=== PATIENT | female | born 1960 | race Asian ===

== ENCOUNTER 2018-01-25 06:07 | Day surgery (SDC) | payer OTHER ==
[2018-01-18 10:57] LABS: Absolute Lymphocytes (CBC) 1.9 K/uL (0.7-4.9); Absolute Monocytes 0.5 K/uL (0.1-1.3); Eosinophils % 2.2 % (0-4.4); Hematocrit 45.3 % (36.0-45.0); Lymphocytes % 41.7 % (15.3-44.8); MCH 29.2 pg (27.0-35.0); MCV 86.7 fL (80-100); MPV 9.3 fL (7.6-11.3); Monocytes % 11.3 % (3.3-12.3); RBC Red Blood Cell Count 5.22 M/uL (3.86-4.86)
[2018-01-18 11:18] LABS: BUN Blood Urea Nitrogen 13 mg/dL (7-18); Bicarbonate 26 mmol/L (21-32); Glucose Level 108 mg/dL (74-106); Sodium Level 140 mmol/L (136-145)
--- NOTE | 2018-01-19 04:20 | EKG ---
Test Date: 2018-01-18 Test Time: 10:11:22 Machine Loader: ZAKIA MEASUREMENT RESULTS: Intervals: Rate: 53 FL: 162 QRSD: 80 QT: 440 QTc: 412 [place]: P: 29 FL: 162 QRS: 27 T: 41 INTERPRETIVE STATEMENTS: Sinus bradycardia Otherwise normal ECG Compared to ECG 03/07/2017 08:31:16 No significant changes Electronically Signed On 01-19-18 04:17:27 CDT by Edwin Segundo
[2018-01-22 10:44] LABS: Protime INR 0.92
[2018-01-25] MEDS ORDERED: Ringers Lactate 1,000 ML IV ONE ×3 (06:34→10:33)
[2018-01-25] MEDS ORDERED: CEFAZOLIN/SWI 1gm 1 GM/10 ML SYR ONE (06:34)
[2018-01-25] MEDS ORDERED: DEXAMETHASONE 4 MG/ML VIAL ONE ×2 (06:52→07:27)
[2018-01-25] MEDS ORDERED: MIDAZOLAM HCL 2 MG/2 ML INJ ONE ×2 (06:52→06:53)
[2018-01-25] MEDS ORDERED: FENTANYL CITR 250 MCG/5 ML ONE (06:53)
[2018-01-25] MEDS ORDERED: ROPLVACAINE HCL 20 ML ONE ×2 (06:53→07:26)
[2018-01-25] MEDS ORDERED: LIDOCAINE 2% MPF 5 ML VIAL ONE ×2 (07:05→07:40)
[2018-01-25] MEDS ORDERED: EPINEPHRINE/PF 1 MG/ML AMP ONE (07:14)
[2018-01-25] MEDS ORDERED: PROPOFOL 200 MG/20 ML VIAL IV ONE (07:39)
[2018-01-25] MEDS ORDERED: ROCURONIUM 50 MG/5 ML VIAL IV ONE (07:40)
[2018-01-25] MEDS ORDERED: ONDANSETRON HCL 40 MG/20 ML VIAL ONE (07:40)
[2018-01-25] MEDS ORDERED: EPHEDRINE SULF 50 MG/10 ML SYR ONE (08:05)
[2018-01-25] MEDS ORDERED: DEXAMETHASONE 10 MG/ML VIAL ONE (08:25)
[2018-01-25] MEDS ORDERED: GLYCOPYRROLATE 0.2 MG/ML SYR ONE ×2 (09:48)
[2018-01-25] MEDS ORDERED: NEOSTIGMINE 1 MG/ML -5 ML SYRINGE ONE (09:49)
--- NOTE | 2018-01-25 09:54 | P.BOP ---
Preoperative diagnosis: left shoulder rotator cuff tear Postoperative diagnosis: same, left shoulder impingement syndrome Primary procedure: left shoulder arthroscopic rotator cuff repair Secondary procedure: left shoulder arthroscopic subscapularis debridement Other procedure(s): left shoulder arthroscopic subacromial decompression Merchandising Coordinator: NONE,NONE Estimated blood loss: <10 cc Specimen: none Findings: see dictation Anesthesia: General Complications: None Implants: 1- 5.5 mm corkscrew, 1- 4.75 mm swivelock Fluids & blood products: per anesthesia record Transferred to: Recovery Room Condition: Good
--- NOTE | 2018-01-25 10:34 | RAD REPORT ---
EXAM DESCRIPTION: RAD - Shoulder 1 View - 01/25/2018 10:25 am CLINICAL HISTORY: Right shoulder surgery FINDINGS: Frontal view of the right shoulder was obtained. No fracture or dislocation is seen. Spur extends off of the inferior aspect of the acromion
[2018-01-25] MEDS ORDERED: ONDANSETRON 4 MG/2 ML VIAL ONE (12:19)
[2018-01-25] MEDS ORDERED: HYDROCODONE/APAP 7.5/325 MG TAB ONE (12:55)
--- NOTE | 2018-01-26 00:43 | OP ---
Date of Procedure: 01/25/2018 Surgeon: Arturo Ty MD Preoperative Diagnoses: 1. Left shoulder rotator cuff tear. 2. Left shoulder impingement syndrome. 3. Left shoulder bicipital tenosynovitis. Postoperative Diagnoses: 1. Left shoulder rotator cuff tear. 2. Left shoulder impingement syndrome. Procedure Performed: 1. Left shoulder arthroscopic rotator cuff repair. 2. Left shoulder arthroscopic subscapularis debridement. 3. Left shoulder arthroscopic subacromial decompression. Anesthesia: General endotracheal. Fluids: Per Anesthesia record. Ebl: Less than 10 cc. Complications: None. Implants: 1. One 5.5 mm Arthrex corkscrew. 2. One 0.75 mm SwiveLock. Indication For Procedure: Janae is a 57-year-old female, who presented to my clinic with signs and symptoms with MRI findings consistent with left shoulder rotator cuff tear. I discussed with the patient at length risks and benefits associated with operative and nonoperative treatment. She expressed understanding and elected to proceed with operative treatment. Description Of Procedure: After informed consent was obtained, the patient was identified in the preoperative holding area. The patient was taken back to the PACU and underwent an interscalene block to her left upper extremity performed by Anesthesia. The left upper extremity was marked. The patient was then taken back to the operating room, transferred to the operating table in supine fashion, and placed under general endotracheal anesthesia. She was then placed in the beach chair position with her extremities well padded. The left upper extremity was then examined. The patient had full range of motion of her left shoulder with no instability noted of her glenohumeral joint. The left upper extremity was then prepped and draped in usual sterile fashion. A time-out was initiated. The correct patient and procedure were confirmed and identified. The patient did receive her preoperative prophylactic antibiotics. In posterior portal position, a spinal needle was introduced into the glenohumeral joint and the shoulder was injected with 30 cc of normal saline to distend the capsule. A posterior portal was created and the arthroscope was brought into the posterior portal position. Standard anterior portal was also created and a diagnostic arthroscopy was performed. The patient was noted to have no significant chondromalacia noted over the humeral head or glenoid surface. The anterior and posterior labrum were found to be intact as well as the superior labrum with no evidence of SLAP tear. The biceps tendon and anchor were found to be without tearing or fraying. The patient was noted to have a small subscapular tear over the superior border of the subscapularis. It was treated with debridement of the small tear. Subscapularis was found to be stable to probe along the lesser tuberosity. Just posterior to the biceps tendon as it exited the shoulder joint, there was noted to be an anterior tear of the supraspinatus, which was full thickness in nature. Standard lateral portals were created and the supraspinatus was debrided using an arthroscopic shaver as well as the greater tuberosity debrided of any soft tissue off the footprint on the greater tuberosity. The arthroscope was then brought into the subacromial space. The subacromial bursectomy was performed. The patient was noted to have some spurring over the anterior lateral undersurface of the acromion. Lateral cannula was then placed and the tear appeared to be amenable to repair with medial and lateral row fixation. A 5.5 mm Arthrex corkscrew was placed for medial row fixation, placed it lateral to the articular surface and was double loaded. Sutures were then passed through the anterior supraspinatus from an [id number] fashion in horizontal mattress fashion. The sutures were then tied for medial row fixation. They were all then brought laterally through a 0.75 mm SwiveLock for a lateral row fixation of the lateral aspect of the greater tuberosity. There was good overall reduction of the supraspinatus tear onto its footprint. The remaining tissues were then cut. Using a radiofrequency ablator as well as an arthroscopic bur, a subacromial decompression was performed. The bur was then used to perform an acromioplasty. The spurring of the undersurface of the acromion was cleared. There was good subacromial space noted after completion of the acromioplasty, no impingement of the rotator cuff. The arthroscopic instruments were then removed without complication. Portal incisions were approximated using a 2-0 Vicryl subcutaneously and the skin was approximated using 3-0 Monocryl. Sterile dressings were applied. The patient was placed in a shoulder immobilizer, awakened, and transferred to PACU in stable condition. Postoperative Plan: Ms. Flaherty will follow up in my clinic in next week for wound check. We will follow the medium rotator cuff repair protocol beginning at 2 weeks postoperatively. LALA/ASHLEY Voice ID: [id number] Report ID: [id number] MTDD
== END 2018-01-25 13:10 | disposition home or self-care (01) ==
LOC: OR 06:07
PROVIDERS: ATTEND Orthopaedic Surgery Sports Medicine
PROC: 0RNK4ZZ Release Left Shoulder Joint, Percutaneous Endoscopic Approach (ICD-10-PCS; 2018-01-25)
PROC: 0RBK4ZZ Excision of Left Shoulder Joint, Percutaneous Endoscopic Approach (ICD-10-PCS; 2018-01-25)
PROC: 0LQ24ZZ Repair Left Shoulder Tendon, Percutaneous Endoscopic Approach (ICD-10-PCS; principal; 2018-01-25 07:30)
DX: M75.122 Complete rotator cuff tear or rupture of left shoulder, not specified as traumatic (principal); M75.42 Impingement syndrome of left shoulder; I10 Essential (primary) hypertension; Z79.82 Long term (current) use of aspirin; Z82.49 Family history of ischemic heart disease and other diseases of the circulatory system; Z83.3 Family history of diabetes mellitus; Z82.3 Family history of stroke
CPT/HCPCS: 36415; 73020; 80048; 85025; 85610; 85730; 93005; J0171; J0690; J1100; J2250; J2405; J2704; J2710; J2795

== ENCOUNTER 2019-04-16 06:41 | Emergency (ER) | payer OTHER ==
--- NOTE | 2019-04-16 07:20 | ER ---
Nurse's Notes [facility] Name: Janae Flaherty Age: 59 yrs Sex: Female : 1960 Arrival Date: 04/16/2019 Time: 06:43 Bed 6 Private MD: Diagnosis: Contusion of little finger without damage to nail;Osteoarthritis, unspecified site-hand Presentation: 04/16 06:53 Presenting complaint: Patient states: she smashed her R pinky finger between a piece of aa1 rolling equipment and a door and is having a lot of pain from it. Bruising and swelling noted. Transition of care: patient was not received from another setting of care. Onset of symptoms was April 16, 2019. Risk Assessment: Do you want to hurt yourself or someone else? Patient reports no desire to harm self or others. Initial Sepsis Screen: Does the patient meet any 2 criteria? No. Patient's initial sepsis screen is negative. Does the patient have a suspected source of infection? No. Patient's initial sepsis screen is negative. Care prior to arrival: None. 06:53 Method Of Arrival: Ambulatory aa1 06:53 Acuity: LUCAS 4 aa1 Triage Assessment: 06:58 General: Appears in no apparent distress. comfortable, Behavior is calm, cooperative, aa1 appropriate for age. Historical: - Allergies: 06:58 No Known Allergies; aa1 - Home Meds: 06:58 Fosamax 70 mg Oral tab 1 tab once wkly [Active]; Lipitor 20 mg Oral tab 1 tab once aa1 daily [Active]; Norvasc 10 mg Oral tab 1 tab once daily [Active]; - PMHx: 06:58 Osteoporosis; Hypertension; aa1 - PSHx: 06:58 None; aa1 - Immunization history:: Flu vaccine is up to date. - Social history:: Smoking status: Patient/guardian denies using tobacco. - Ebola Screening: : No symptoms or risks identified at this time. Screenin:16 Abuse screen: Denies threats or abuse. Denies injuries from another. Nutritional ph screening: No deficits noted. Tuberculosis screening: No symptoms or risk factors identified. Fall Risk None identified. Assessment: 07:17 General: Appears in no apparent distress. Behavior is calm, cooperative, appropriate ph for age. Pain: Complains of pain in dorsal aspect of middle phalanx of right little finger and dorsal aspect of proximal phalanx of right little finger. Neuro: Level of Consciousness is awake, alert, obeys commands, Oriented to person, place, time, situation. Cardiovascular: Capillary refill < 3 seconds in bilateral fingers Patient's skin is warm and dry. Respiratory: Airway is patent Respiratory effort is even, unlabored. Derm: Skin is healthy with good turgor, Skin is pink, warm \T\ dry. Musculoskeletal: Circulation, motion, and sensation intact. Swelling present in dorsal aspect of middle phalanx of right little finger and dorsal aspect of proximal phalanx of right little finger. Vital Signs: 06:58 BP 144 / 75; Pulse 64; Resp 16; Temp 98.1; Pulse Ox 100% on R/A; Weight 52.16 kg; aa1 Height 5 ft. 1 in. (154.94 cm); Pain 5/10; 06:58 Body Mass Index 21.73 (52.16 kg, 154.94 cm) aa1 ED Course: 06:43 Patient arrived in ED. ds1 06:57 Triage completed. aa1 06:58 Arm band placed on left wrist. aa1 07:08 Cherelle Green FNP-C is PHCP. snw 07:08 Ruiz Carrera MD is Attending Physician. snw 07:11 Hand Right 3 View XRAY In Process Unspecified. EDMS 07:14 Dilcia Rodriguez, RN is Primary Nurse. ph 07:16 Patient has correct armband on for positive identification. Bed in low position. Call ph light in reach. Side rails up X 1. Pulse ox on. NIBP on. Door closed. Noise minimized. Administered Medications: 07:39 Drug: TORadol 30 mg Route: IM; Site: right gluteus; ss 07:45 Follow up: Response: No adverse reaction ph Outcome: 07:19 Discharge ordered by . snw 07:40 Patient left the ED. Signatures: Dispatcher [employer] EDMS Aracely Sarmiento, RN RN aa1 Cherelle Green FNP-C PROGRESS WORKER-CsnMeka Katz ds1 Minda Steinberg RN RN ss Dilcia Rodriguez RN RN ph
--- NOTE | 2019-04-16 07:20 | EDPHYS ---
Physician Documentation [facility] Name: Janae Flaherty Age: 59 yrs Sex: Female : 1960 Arrival Date: 04/16/2019 Time: 06:43 Bed 6 Private MD: ED Physician Ruiz Carrera HPI: 04/16 07:29 This 59 yrs old Female presents to ER via Ambulatory with complaints of Finger snw Injury. 07:29 The patient or guardian reports a contusion, pain, swelling. The complaints affect the snw dorsal aspect of middle phalanx of right little finger. Context: The problem was sustained at work, resulted from a crush injury, smashed between door and computer on wheels. Onset: The symptoms/episode began/occurred suddenly, yesterday, at 21:30. Associated signs and symptoms: Pertinent positives: edema. Severity of symptoms: At their worst the symptoms were moderate. The patient has not experienced similar symptoms in the past. It is unknown whether or not the patient has recently seen a physician. Historical: - Allergies: 06:58 No Known Allergies; aa1 - Home Meds: 06:58 Fosamax 70 mg Oral tab 1 tab once wkly [Active]; Lipitor 20 mg Oral tab 1 tab once aa1 daily [Active]; Norvasc 10 mg Oral tab 1 tab once daily [Active]; - PMHx: 06:58 Osteoporosis; Hypertension; aa1 - PSHx: 06:58 None; aa1 - Immunization history:: Flu vaccine is up to date. - Social history:: Smoking status: Patient/guardian denies using tobacco. - Ebola Screening: : No symptoms or risks identified at this time. ROS: 07:25 Constitutional: Negative for fever, chills, and weight loss, Eyes: Negative for injury, snw pain, redness, and discharge, ENT: Negative for injury, pain, and discharge, Neck: Negative for injury, pain, and swelling, Cardiovascular: Negative for chest pain, palpitations, and edema, Respiratory: Negative for shortness of breath, cough, wheezing, and pleuritic chest pain, Abdomen/GI: Negative for abdominal pain, nausea, vomiting, diarrhea, and constipation, Back: Negative for injury and pain, : Negative for injury, bleeding, discharge, and swelling, Neuro: Negative for headache, weakness, numbness, tingling, and seizure, Psych: Negative for depression, anxiety, suicide ideation, homicidal ideation, and hallucinations. 07:25 MS/extremity: Positive for injury or acute deformity, contusion, swelling, of the dorsal aspect of middle phalanx of right little finger. 07:25 Skin: Positive for ecchymosis, of the dorsal aspect of middle phalanx of right little finger. Exam: 07:25 Constitutional: This is a well developed, well nourished patient who is awake, alert, snw and in no acute distress. Head/Face: Normocephalic, atraumatic. Eyes: Pupils equal round and reactive to light, extra-ocular motions intact. Lids and lashes normal. Conjunctiva and sclera are non-icteric and not injected. Cornea within normal limits. Periorbital areas with no swelling, redness, or edema. ENT: Nares patent. No nasal discharge, no septal abnormalities noted. Tympanic membranes are normal and external auditory canals are clear. Oropharynx with no redness, swelling, or masses, exudates, or evidence of obstruction, uvula midline. Mucous membranes moist. Neck: Trachea midline, no thyromegaly or masses palpated, and no cervical lymphadenopathy. Supple, full range of motion without nuchal rigidity, or vertebral point tenderness. No Meningismus. Chest/axilla: Normal chest wall appearance and motion. Nontender with no deformity. No lesions are appreciated. Cardiovascular: Regular rate and rhythm with a normal S1 and S2. No gallops, murmurs, or rubs. Normal PMI, no JVD. No pulse deficits. Respiratory: Lungs have equal breath sounds bilaterally, clear to auscultation and percussion. No rales, rhonchi or wheezes noted. No increased work of breathing, no retractions or nasal flaring. Abdomen/GI: Soft, non-tender, with normal bowel sounds. No distension or tympany. No guarding or rebound. No evidence of tenderness throughout. Back: No spinal tenderness. No costovertebral tenderness. Full range of motion. Neuro: Awake and alert, GCS 15, oriented to person, place, time, and situation. Cranial nerves II-XII grossly intact. Motor strength 5/5 in all extremities. Sensory grossly intact. Cerebellar exam normal. Normal gait. Psych: Awake, alert, with orientation to person, place and time. Behavior, mood, and affect are within normal limits. 07:25 Skin: Appearance: normal except for affected area, Color: normal in color, injury, contusion(s), that are deep, of the dorsal aspect of middle phalanx of right little finger. Vital Signs: 06:58 BP 144 / 75; Pulse 64; Resp 16; Temp 98.1; Pulse Ox 100% on R/A; Weight 52.16 kg; aa1 Height 5 ft. 1 in. (154.94 cm); Pain 5/10; 06:58 Body Mass Index 21.73 (52.16 kg, 154.94 cm) aa1 MDM: 07:14 Patient medically screened. snw 07:27 Data reviewed: vital signs, nurses notes. Data interpreted: Pulse oximetry: on room air snw is 100 %. Interpretation: normal. Counseling: I had a detailed discussion with the patient and/or guardian regarding: the historical points, exam findings, and any diagnostic results supporting the discharge/admit diagnosis, the presence of at least one elevated blood pressure reading (>120/80) during this emergency department visit, radiology results, the need for outpatient follow up, for definitive care, to return to the emergency department if symptoms worsen or persist or if there are any questions or concerns that arise at home. 04/16 06:53 Order name: Hand Right 3 View XRAY aa1 Administered Medications: 07:39 Drug: TORadol 30 mg Route: IM; Site: right gluteus; ss 07:45 Follow up: Response: No adverse reaction ph Disposition: 09:37 Co-signature as Attending Physician, Ruiz Carrera MD I agree with the assessment and tw4 plan of care. Disposition: 04/16/19 07:19 Discharged to Home. Impression: Contusion of little finger without damage to nail, Osteoarthritis, unspecified site - hand. - Condition is Stable. - Discharge Instructions: Hand Contusion, Crush Injury of the Hand. - Prescriptions for Mobic 7.5 mg Oral Tablet - take 1 tablet by ORAL route once daily take with food; 20 tablet. - Medication Reconciliation Form, Thank You Letter, Antibiotic Education, Prescription Opioid Use form. - Follow up: Emergency Department; When: As needed; Reason: Worsening of condition. Follow up: Private Physician; When: 2 - 3 days; Reason: Recheck today's complaints, Continuance of care, Re-evaluation by your physician. Signatures: Dispatcher [employer] Aracely Byrnes RN RN aa1 Cherelle Green, SALVAGE LABORER-C SALVAGE LABORER-Elizabethw Minda Steinberg RN RN ss Ruiz Carrera MD MD tw4 Dilcia Rodriguez RN ph Corrections: (The following items were deleted from the chart) 07:40 07:19 04/16/2019 07:19 Discharged to Home. Impression: Contusion of little finger ss without damage to nail; Osteoarthritis, unspecified site - hand. Condition is Stable. Forms are Medication Reconciliation Form, Thank You Letter, Antibiotic Education, Prescription Opioid Use. Follow up: Emergency Department; When: As needed; Reason: Worsening of condition. Follow up: Private Physician; When: 2 - 3 days; Reason: Recheck today's complaints, Continuance of care, Re-evaluation by your physician. snw
[2019-04-16] MEDS ORDERED: KETOROLAC 30 MG/ML INJ ONE (07:38)
--- NOTE | 2019-04-16 08:50 | RAD REPORT ---
EXAM DESCRIPTION: RAD - Hand Right 3 View - 04/16/2019 7:11 am CLINICAL HISTORY: SMASH INJURY COMPARISON: No comparisons FINDINGS: Soft tissue swelling is seen affecting the fifth finger. No fracture or dislocation. No ag gressive marrow pattern.
[2019-04-16 09:35] VITALS: BP 144/75; TEMP 98.1; O2SAT 100
== END 2019-04-16 07:40 | disposition home or self-care (01) ==
LOC: ER 06:41
DX: S60.051A Contusion of right little finger without damage to nail, initial encounter (principal); M19.049 Primary osteoarthritis, unspecified hand; W23.0XXA Caught, crushed, jammed, or pinched between moving objects, initial encounter; Y93.9 Activity, unspecified; Y92.9 Unspecified place or not applicable; I10 Essential (primary) hypertension
CPT/HCPCS: 96372; 99283

== ENCOUNTER 2019-07-04 06:39 | Emergency (ER) | payer OTHER ==
--- NOTE | 2019-07-04 07:15 | ER ---
Nurse's Notes [facility] Name: Janae Flaherty Age: 59 yrs Sex: Female : 1960 Arrival Date: 07/04/2019 Time: 06:41 Bed 5 Private MD: Diagnosis: Pain in right shoulder Presentation: 07/03 06:54 Chief complaint: Patient states: she was at work last night at approx 1830 and tried to bb move a recliner when she felt a sharp pain in her right shoulder which is still painful and radiating up her neck. Coronavirus screen: Patient denies fever greater than 100.4F, cough, shortness of breath, or difficulty breathing. Proceed with normal triage process. Ebola Screen: No symptoms or risks identified at this time. Initial Sepsis Screen: Does the patient meet any 2 criteria? No. Patient's initial sepsis screen is negative. Does the patient have a suspected source of infection? No. Patient's initial sepsis screen is negative. Risk Assessment: Do you want to hurt yourself or someone else? Patient reports no desire to harm self or others. Onset of symptoms was July 03, 2019. 06:54 Method Of Arrival: Ambulatory bb 06:54 Acuity: LUCAS 3 bb Historical: - Allergies: 06:58 No Known Allergies; bb - Home Meds: 06:58 Fosamax 70 mg Oral tab 1 tab once wkly [Active]; Lipitor 20 mg Oral tab 1 tab once bb daily [Active]; amlodipine 10 mg tab 1 tab once daily [Active]; aspirin 81 mg Oral chew 1 tab once daily [Active]; - PMHx: 06:58 Hypertension; Osteoporosis; bb - PSHx: 06:58 bilateral rotator cuff; Hysterectomy; Appendectomy; bb - Immunization history:: Adult Immunizations up to date. - Social history:: Smoking status: Patient denies any tobacco usage or history of. Screenin:11 Abuse screen: Denies threats or abuse. Nutritional screening: No deficits noted. em Tuberculosis screening: No symptoms or risk factors identified. Fall Risk None identified. Assessment: 07:10 General: Appears in no apparent distress. comfortable, Behavior is calm, cooperative, em appropriate for age, Denies fever. Pain: Complains of pain in right trapezius and right shoulder Pain currently is 4 out of 10 on a pain scale. Neuro: Level of Consciousness is awake, alert, obeys commands, Oriented to person, place, time, situation, Appropriate for age. Cardiovascular: Capillary refill < 3 seconds Patient's skin is warm and dry. Respiratory: Airway is patent Respiratory effort is even, unlabored, Respiratory pattern is regular, symmetrical. Derm: Skin is intact, is healthy with good turgor, Skin is pink, warm \T\ dry. Musculoskeletal: Capillary refill < 3 seconds, Range of motion: limited in right shoulder. Vital Signs: 06:54 BP 145 / 82; Pulse 57; Resp 16 S; Temp 98.2(O); Pulse Ox 98% on R/A; Weight 52.16 kg bb (R); Height 5 ft. 1 in. (154.94 cm) (R); Pain 4/10; 06:54 Body Mass Index 21.73 (52.16 kg, 154.94 cm) ED Course: 06:41 Patient arrived in ED. cl3 06:44 [facility] jr8 06:44 Valdemar Krause MD is Attending Physician. jr8 06:57 Triage completed. bb 06:58 Arm band placed on Patient placed in an exam room, on a stretcher, on pulse oximetry. bb 07:11 Evens Ji, RN is Primary Nurse. em 07:11 Patient has correct armband on for positive identification. Placed in gown. Bed in low em position. Call light in reach. 07:33 No provider procedures requiring assistance completed. Patient did not have IV access em during this emergency room visit. Administered Medications: No medications were administered Outcome: 07:15 Discharge ordered by . jr8 07:33 Discharged to home ambulatory. em 07:33 Condition: good 07:33 Discharge instructions given to patient, Instructed on discharge instructions, follow up and referral plans. medication usage, Demonstrated understanding of instructions, follow-up care, medications, Prescriptions given X 1. 07:33 Patient left the ED. em Signatures: Evens Ji, RN RN Lulu Arnett RN RN bb Eduardo Jacobs PA PA jrMatthew De La Cruz cl3
--- NOTE | 2019-07-04 07:15 | EDPHYS ---
Physician Documentation [facility] Name: Janae Flaherty Age: 59 yrs Sex: Female : 1960 Arrival Date: 07/04/2019 Time: 06:41 Bed 5 Private MD: ALEX Physician Valdemar Krause HPI: 07/03 07:28 This 59 yrs old Female presents to ER via Ambulatory with complaints of Shoulder jr8 Pain. 07:28 The patient or guardian complains of decreased range of motion, pain, tenderness. right jr8 shoulder and right trapezius. Context: The problem was sustained at work, resulted from lifting or carrying, a patient, The patient experiences decreased range of motion, The patient reports no obvious deformity. Onset: The symptoms/episode began/occurred acutely, yesterday. Modifying factors: the symptoms are alleviated by nothing. The symptoms are aggravated by movement. Associated signs and symptoms: The patient has no apparent associated signs or symptoms. Severity of symptoms: At their worst the symptoms were mild, in the emergency department the symptoms are unchanged. It is unknown whether or not the patient has had similar symptoms in the past. The patient has not recently seen a physician. 07:29 Patient stated that she was lifting patient while at work. Shirley pain in upper shoulder. jr8 Has been icing it but still hurting and with decreased ROM secondary to pain . Historical: - Allergies: 06:58 No Known Allergies; bb - Home Meds: 06:58 Fosamax 70 mg Oral tab 1 tab once wkly [Active]; Lipitor 20 mg Oral tab 1 tab once bb daily [Active]; amlodipine 10 mg tab 1 tab once daily [Active]; aspirin 81 mg Oral chew 1 tab once daily [Active]; - PMHx: 06:58 Hypertension; Osteoporosis; bb - PSHx: 06:58 bilateral rotator cuff; Hysterectomy; Appendectomy; bb - Immunization history:: Adult Immunizations up to date. - Social history:: Smoking status: Patient denies any tobacco usage or history of. ROS: 07:29 Eyes: Negative for injury, pain, redness, and discharge, ENT: Negative for injury, jr8 pain, and discharge, Neck: Negative for injury, pain, and swelling, Cardiovascular: Negative for chest pain, palpitations, and edema, Respiratory: Negative for shortness of breath, cough, wheezing, and pleuritic chest pain, Abdomen/GI: Negative for abdominal pain, nausea, vomiting, diarrhea, and constipation, Back: Negative for injury and pain, Skin: Negative for injury, rash, and discoloration, Neuro: Negative for headache, weakness, numbness, tingling, and seizure. 07:29 MS/extremity: Positive for decreased range of motion, pain, tenderness, of the right trapezius and right shoulder. Exam: 07:29 Eyes: Pupils equal round and reactive to light, extra-ocular motions intact. Lids and jr8 lashes normal. Conjunctiva and sclera are non-icteric and not injected. Cornea within normal limits. Periorbital areas with no swelling, redness, or edema. ENT: Nares patent. No nasal discharge, no septal abnormalities noted. Tympanic membranes are normal and external auditory canals are clear. Oropharynx with no redness, swelling, or masses, exudates, or evidence of obstruction, uvula midline. Mucous membranes moist. Neck: Trachea midline, no thyromegaly or masses palpated, and no cervical lymphadenopathy. Supple, full range of motion without nuchal rigidity, or vertebral point tenderness. No Meningismus. Cardiovascular: Regular rate and rhythm with a normal S1 and S2. No gallops, murmurs, or rubs. Normal PMI, no JVD. No pulse deficits. Respiratory: Lungs have equal breath sounds bilaterally, clear to auscultation and percussion. No rales, rhonchi or wheezes noted. No increased work of breathing, no retractions or nasal flaring. Abdomen/GI: Soft, non-tender, with normal bowel sounds. No distension or tympany. No guarding or rebound. No evidence of tenderness throughout. Back: No spinal tenderness. No costovertebral tenderness. Full range of motion. Skin: Warm, dry with normal turgor. Normal color with no rashes, no lesions, and no evidence of cellulitis. Neuro: Awake and alert, GCS 15, oriented to person, place, time, and situation. Cranial nerves II-XII grossly intact. Motor strength 5/5 in all extremities. Sensory grossly intact. Cerebellar exam normal. Normal gait. 07:29 Musculoskeletal/extremity: Extremities: grossly normal except: noted in the right shoulder: pain, tenderness, over the AC joint. No external bruising or deformity noted , ROM: intact in all extremities, full active range of motion, full passive range of motion, limited active range of motion due to pain, limited passive range of motion due to pain, Circulation is intact in all extremities. Sensation intact. Vital Signs: 06:54 BP 145 / 82; Pulse 57; Resp 16 S; Temp 98.2(O); Pulse Ox 98% on R/A; Weight 52.16 kg bb (R); Height 5 ft. 1 in. (154.94 cm) (R); Pain 4/10; 06:54 Body Mass Index 21.73 (52.16 kg, 154.94 cm) bb MDM: 06:44 Patient medically screened. jr8 07:05 Data reviewed: vital signs, nurses notes, and as a result, I will discharge patient. jr8 Data interpreted: Pulse oximetry: on room air is 98 %. Interpretation: normal. Counseling: I had a detailed discussion with the patient and/or guardian regarding: the historical points, exam findings, and any diagnostic results supporting the discharge/admit diagnosis, the need for outpatient follow up, a family practitioner, a orthopedic surgeon, to return to the emergency department if symptoms worsen or persist or if there are any questions or concerns that arise at home. ED course: Discussed with patient that there was no direct trauma to the bone. Fracture unlikely. Based on mechanism sounds like she has pulled a muscle or tendon. Recommended rest and NSAID for a few days. F/U with PCP. . Administered Medications: No medications were administered Disposition: 07:42 Co-signature as Attending Physician, Valdemar Krause MD I agree with the assessment and brian plan of care. Disposition: 07/04/19 07:15 Discharged to Home. Impression: Pain in right shoulder. - Condition is Stable. - Discharge Instructions: Musculoskeletal Pain, Rotator Cuff Injury, Shoulder Pain. - Prescriptions for meloxicam 15 mg Oral tablet - take 1 tablet by ORAL route once daily for 7 days; 7 tablet. - Work release form, Medication Reconciliation Form, Thank You Letter, Antibiotic Education, Prescription Opioid Use form. - Follow up: Private Physician; When: 1 week; Reason: Recheck today's complaints, Continuance of care, Re-evaluation by your physician. - Problem is new. - Symptoms have improved. Signatures: Valdemar Krause MD MD cha Munoz, Edgar, RN RN em Ballard, Brenda, RN RN Eduardo Del Toro PA PA jr8 Corrections: (The following items were deleted from the chart) 07:33 07:15 07/04/2019 07:15 Discharged to Home. Impression: Pain in right shoulder. em Condition is Stable. Forms are Medication Reconciliation Form, Thank You Letter, Antibiotic Education, Prescription Opioid Use. Follow up: Private Physician; When: 1 week; Reason: Recheck today's complaints, Continuance of care, Re-evaluation by your physician. Problem is new. Symptoms have improved. jr8
[2019-07-04 07:40] VITALS: BP 145/82; TEMP 98.2; O2SAT 98
== END 2019-07-04 07:33 | disposition home or self-care (01) ==
LOC: ER 06:39
DX: M25.511 Pain in right shoulder (principal); X50.9XXA Other and unspecified overexertion or strenuous movements or postures, initial encounter; Y99.0 Civilian activity done for income or pay; I10 Essential (primary) hypertension; M81.0 Age-related osteoporosis without current pathological fracture; Z79.899 Other long term (current) drug therapy; Z79.82 Long term (current) use of aspirin
CPT/HCPCS: 99283